=== PATIENT | male | born 1980 | race African-American/Black ===

== ENCOUNTER 2020-02-02 16:06 | Emergency (ER) | payer SELFPAY ==
[~2020-02-02] VITALS: Ht 182.9 cm; Wt 105.0 kg
[2020-02-02 19:25] LABS: BASOPHILS % 0.4 % (0.0-2.0); EOSINOPHILS % 0.2 % (0.0-5.0); HEMATOCRIT. 41.6 % (42.0-52.0); HEMOGLOBIN. 14.7 g/dL (14.0-18.0); MEAN CORPUSCULAR VOLUME 90.3 fL (80.0-94.0); MEAN PLATELET VOLUME 7.4 fl (7.4-10.4); MONOCYTES % 6.7 % (2.0-8.0); NEUTROPHILS % 70.7 % (40.0-76.0); PLATELET 281 x1000/uL (130-400)
[2020-02-02 19:31] LABS: CHLORIDE 100 mEq/L (98-107)
[2020-02-02 22:00] VITALS: BP 125/89
== END 2020-02-02 22:05 | disposition home or self-care (01) ==
LOC: ER 16:27
DX: R60.0 Localized edema (principal)
CPT/HCPCS: 36415; 71045; 80048; 80076; 83880; 84484; 85025; 93005; 93971; 99285